=== PATIENT | female | born 1980 ===

== ENCOUNTER 2017-12-11 09:14 | Day surgery (SDC) | payer OTHER ==
[2017-12-11] VITALS (7 sets, daily range): BP systolic 100–111; BP diastolic 59–66
[~2017-12-11] VITALS: Ht 162.6 cm; Wt 51.3 kg
--- NOTE | 2017-12-11 06:45 | Anethesia Preoperative Eval ---
Anesthesia Pre-op PMH/ROS General Date of Evaluation: Dec 11, 2017 Time of Evaluation: 06:44 Anesthesiologist: maggie ASA Score: ASA 2 Mallampati Score Class I : Soft palate, uvula, fauces, pillars visible Class II: Soft palate, uvula, fauces visible Class III: Soft palate, base of uvula visible Class IV: Only hard plate visible Mallampati Classification: Class II Surgeon: chuck Diagnosis: colon screening Surgical Procedure: colonoscopy Anesthesia History: none Social History: alcohol use, drug use - marijuana Family History: no anesthesia problems Allergies: Coded Allergies: No Known Allergies (Unverified , 12/11/17) Medications: see eMAR Past Medical History Neurologic/Psychiatric: Reports: depression/anxiety Anesthesia Pre-op Phys. Exam Physician Exam Constitutional: NAD Neurologic: CN 2-12 intact Cardiovascular: RRR Respiratory: CTA Gastrointestinal: S/NT/ND Airway Exam Mallampati Score: Class II MO: full Neck: supple TMD: 2fb ROM: full Teeth: intact Anesthesia Pre-op A/P Labs Labs Test 12/11/17 09:30 Urine HCG, Qualitative Negative (NEGATIVE) Risk Assessment & Plan Assessment: asa2 Plan: mac Status Change Before Surgery: No Pre-Antibiotics Drug: Elin Quintana MD Dec 11, 2017 06:45
[2017-12-11] MEDS ORDERED: PRISTIQ ER50 MG PO (10:01)
[2017-12-11] MEDS ORDERED: Propofol 200mg/20ml IV ONE (11:00)
[2017-12-11] MEDS ORDERED: Lidocaine 1% MPF 10mg/ml 5ml ONE (11:00)
[2017-12-11] MEDS ORDERED: LR 1000ml ONE (11:00)
--- NOTE | 2017-12-11 11:18 | Short Stay Surgery H&P ---
History of Present Illness History of Present Illness Chief Complaint Abdominal pains/screening colon HPI Raissa Carlos is a 37 year old female who was admitted on for Colon Screening Patient History Allergies: Coded Allergies: No Known Allergies (Unverified , 12/11/17) Medication History Scheduled Desvenlafaxine Succinate (Pristiq Er), 50 MG PO DAILY, (Reported) Review of Systems Cardiovascular: Reports: no symptoms Respiratory: Reports: no symptoms Skeletal: Reports: no symptoms Gastrointestinal: Reports: other Genitourinary: Reports: no symptoms Neurologic: Reports: no symptoms Endocrine: Reports: no symptoms Hematologic: Reports: no symptoms Physical Exam Vital Signs Last Vital Signs Date Time Temp Pulse Resp B/P (MAP) Pulse Ox O2 Delivery O2 Flow Rate FiO2 12/11/17 10:04 97.5 61 18 111/63 (79) 100 97.5 12/11/17 09:56 Room Air Labs Laboratory Tests Test 12/11/17 09:30 Urine HCG, Qualitative Negative (NEGATIVE) Skin: normal HENT: normal Heart: normal Lungs: normal Abdomen: abnormal Extremities: normal Genitourinary: normal Plan Plan of Care Total colonoscopy Preop Interventions None. Summary of Findings See the reports Attestation Are the patient's medical conditions optimized for surgery? Attestation Response: yes Tone Cunningham MD Dec 11, 2017 11:18
--- NOTE | 2017-12-11 11:19 | Pre-Procedure Note/Attestation ---
Pre-Procedure Note/Attestation Complete Prior to Procedure Planned Procedure: left Procedure Narrative: Endoscopic examination of the total colon Indications for Procedure Pre-Operative Diagnosis: R/O colitis/polyps Attestation I attest that I discussed the nature of the procedure; its benefits; risks and complications; and alternatives (and the risks and benefits of such alternatives ), prior to the procedure, with the patient (or the patient's legal software support representative). I attest that, if there was a reasonable possibility of needing a blood transfusion, the patient (or the patient's legal software support representative) was given the [facility] standardized written summary, pursuant to the Fredy Baron Blood Safety Act ([place] Health and Safety Code # 1645, as amended). I attest that I re-evaluated the patient just prior to the surgery and that there has been no change in the patient's H&P, except as documented below: Tone Cunningham MD Dec 11, 2017 11:19
--- NOTE | 2017-12-11 11:46 | Endoscopy Procedure Note ---
Endoscopy Procedure Note General Indication for Procedure: Screening colon Procedures Performed: colonoscopy - 7 mm flat polyp found in the rectum at 18 CM from anal opening removed by hot snare, therwise normal total colonoscopy with fair colon prep. Specimen: yes Pt Tolerated Procedure Well: Yes Estimated Blood Loss: none Anesthesia Anesthesiologist: Dr. Cobian Anesthesia: moderate sedation Medications Medication Given: see anesthesia record Inserted Devices Implant(s) used?: No Quality Quality of Bowel Preparation: Fair Did scope reach the cecum?: Yes GI Core Measures 50 yrs or older w/o bx or poly: No 10yrs. F/U not recommended: Yes 10 yrs. F/U needed: Yes 18 years or older w/prev. colo: No Med reason:<3 yrs.: System Reason:<3 yrs.: Tone Cunningham MD Dec 11, 2017 11:46
--- NOTE | 2017-12-11 11:47 | Discharge Instructions ---
Discharge Instructions Discharge Instructions Follow up with: follow up with the doctor in office after two weeks For Congestive Heart Failure Reminder Report to your physician any weight gain of 5 pounds or more in one week. Tone Cunningham MD Dec 11, 2017 11:47
--- NOTE | 2017-12-11 12:16 | Immediate Post-Op Evaluation ---
Immediate Post-Op Evalulation Immediate Post-Op Evalulation Procedure: colonoscopy w/bx Date of Evaluation: Dec 11, 2017 Time of Evaluation: 12:07 IV Fluids: 300ml lr Blood Products: none Estimated Blood Loss: negligible Blood Pressure Systolic: 106 Blood Pressure Diastolic: 66 Pulse Rate: 72 Respiratory Rate: 18 O2 Sat by Pulse Oximetry: 99 Temperature (Fahrenheit): 98.2 Pain Score (1-10): 0 Nausea: No Vomiting: No Complications none Patient Status: awake, reacts, patent Hydration Status: adequate Drug: Elin Quintana MD Dec 11, 2017 12:16
--- NOTE | 2017-12-11 12:17 | 48 Hour Post Anesthesia Eval ---
Post Anesthesia Evaluation Procedure: colonoscopy w/bx Date of Evaluation: Dec 11, 2017 Time of Evaluation: 12:09 Blood Pressure Systolic: 111 0: 76 Pulse Rate: 75 Respiratory Rate: 18 Temperature (Fahrenheit): 98.2 O2 Sat by Pulse Oximetry: 99 Airway: patent Nausea: No Vomiting: No Pain Intensity: 0 Hydration Status: adequate Cardiopulmonary Status: stable Mental Status/LOC: patient returned to baseline Post-Anesthesia Complications: none Follow-up care needed: N/A Elin Stokes MD Dec 11, 2017 12:17
[2017-12-11] MEDS ORDERED: fentaNYL 100 mcg/2 mL IV PRN (12:21)
[2017-12-11] MEDS ORDERED: DiphenhydrAMINE 50mg/ml Inj IVP PRN (12:22)
[2017-12-11] MEDS ORDERED: Labetalol 5mg/ml 20ml vial IV PRN (12:22)
[2017-12-11] MEDS ORDERED: Midazolam 2mg/2ml Inj IVP PRN (12:22)
[2017-12-11] MEDS ORDERED: Atropine Inj 1mg/10ml Syr IV PRN (12:23)
[2017-12-11] MEDS ORDERED: LR 1000ml 1,000 ML IVLG SCH (12:23)
--- NOTE | 2017-12-11 22:16 | Operative Note - Dictated ---
DATE OF OPERATION: 12/11/2017 SURGEON: Tone Cunningham M.D PROCEDURE: Total colonoscopy with polypectomy. PREOPERATIVE DIAGNOSIS: Screening colonoscopy. POSTOPERATIVE DIAGNOSIS: Evidence of 7 mm flat polypoid lesion in the rectum, which was removed with hot snare cautery and sent to pathology lab. MEDICATIONS USED: Per Dr. Cobian, anesthesiologist. INSTRUMENT: GIF Olympus video colonoscope. DESCRIPTION OF PROCEDURE: The patient after arriving endoscopy unit, was told about risks and benefits of the procedure, which she accepted signed informed consent. She was then put on the left lateral decubitus position. After adequate IV sedation, the scope was gently passed through the anal area, which did not reveal any major hemorrhoids. With careful examination of the rectum revealed evidence of benign soft flat polypoid lesion, size of 7 mm looking quite benign and this polyp was injected with approximately 2-3 mL saline and then grabbed with hot snare and totally removed and sent to pathology lab. The site of the polypectomy remained to be completely without any bleeding and normal. At this point, the scope was passed through other highly redundant colon reaching to the splenic flexure and the transverse colon. The colon cleanup was fair and there was evidence of liquidy stool along the colon. Finally, the scope was gradually advanced towards the hepatic flexure, right colon all the way to the base of the cecum and there was no other pathology such as polyps, tumors, found anymore. Upon reaching to the base of the cecum within 7 minutes, the scope was gradually pulled out and procedure was terminated. The patient tolerated the procedure well and left the endoscopy room in a good condition. Tone Cunningham M.D. DR: D[place]AS JOB#: [id number] CC:
== END 2017-12-11 12:55 | disposition home or self-care (01) ==
LOC: GAS 09:14
DX: Z12.11 Encounter for screening for malignant neoplasm of colon (principal); D12.8 Benign neoplasm of rectum; F32.9 Major depressive disorder, single episode, unspecified; F41.9 Anxiety disorder, unspecified; F17.200 Nicotine dependence, unspecified, uncomplicated; F12.90 Cannabis use, unspecified, uncomplicated
CPT/HCPCS: 45385; 81025; J2704; J7120; 94003; 94150